=== PATIENT | male | born 1990 | race Caucasian/White ===

== ENCOUNTER 2021-02-03 10:13 | Emergency (ER) | payer OTHER ==
[~2021-02-03 10:13] MED LIST: CELEBREX200 MG PO; FLOVENT 220.1 GM/INH INH; KEFLEX500 MG PO; PROAIR DIGIHAL90 MCG INH; ZOFRAN 4 MG TAB4 MG PO
[2021-02-03 11:44] LABS: HEMOGLOBIN 15.7 gm/dl (14.0-17.5); RED BLOOD COUNT 5.2 M/UL (4.20-5.50); WHITE BLOOD COUNT 4.5 K/UL (4.5-11.0)
[2021-02-03 12:01] LABS: BUN/CREATININE RATIO 15 (0-10)
[2021-02-03] MEDS ORDERED: ZOFRAN4 MG PO (14:37)
== END 2021-02-03 14:55 | disposition home or self-care (01) ==
LOC: ER1 10:13
PROVIDERS: Nurse Practitioner
DX: R10.84 Generalized abdominal pain (principal); R11.0 Nausea; Z88.0 Allergy status to penicillin; Z20.822 Contact with and (suspected) exposure to COVID-19
CPT/HCPCS: 80053; 81001; 82272; 83690; 85025; 85610; 96374; 99284; J2405; J7030; Q9967; U0002

== ENCOUNTER 2021-08-20 09:35 | Emergency (ER) | payer OTHER ==
[~2021-08-20 09:35] MED LIST changes: +ZOFRAN4 MG PO
== END 2021-08-20 11:22 | disposition home or self-care (01) ==
LOC: ER1 09:35
DX: J06.9 Acute upper respiratory infection, unspecified (principal); Z20.822 Contact with and (suspected) exposure to COVID-19; Z88.0 Allergy status to penicillin
CPT/HCPCS: 0240U; 87081; 87880; 99283